=== PATIENT | female | born 1990 | race Caucasian/White ===

== ENCOUNTER 2019-09-14 10:33 | Inpatient (IN) | payer OTHER ==
[~2019-09-14] VITALS: Ht 157.5 cm; Wt 72.3 kg
[2019-09-24] VITALS (29 sets, daily range): BP systolic 11–125; BP diastolic 55–72; PULSE 75–97; TEMP 97.4–98.1
--- NOTE | 2019-09-24 07:18 | NUR ---
Presents to labor and delivery for induction of labor. heart rate monitor on. heart [id number] with accelerations noted, no decels noted. Iv start to left inner arm. Assessment done, questions offered and answered. 0768 Dr. Broussard here, arom done, moderate amount of clear fluid noted.
[2019-09-24] MEDS ORDERED: PRENATAL TABLET PO (07:44)
[2019-09-24] MEDS ORDERED: NATURAL IRON65 MG (07:56)
[2019-09-24] MEDS ORDERED: COLACE 100100 MG/CAP PO (07:57)
--- NOTE | 2019-09-24 08:00 | NUR ---
Pitocin 2 yobany units iv started as ordered and per protocol.
--- NOTE | 2019-09-24 08:30 | NUR ---
Request epidural. Anesthesia notified of request.
[2019-09-24 08:34] LABS: BASO % 0.3 % (0.0-2.0); EOS # 0.2 (0.0-0.7); EOS % 1.6 % (0-4.0); GRAN # 9.2 (1.4-6.5); HEMOGLOBIN 10.7 g/dl (12.5-16.0); LYMPH # 2.4 (1.2-3.4); LYMPH % 18.5 % (20.0-51.0); MEAN CELL VOLUME 96 fl (80.0-100.0); MEAN CORPUSCULAR HEMOGLOBIN 32 pg (27.0-31.0); MEAN CORPUSCULAR HGB CONC 34 g/dl (33.0-37.0); MEAN PLATELET VOLUME 10.5 fl (7.4-10.4); MONO # 0.9 (0.1-0.6); MONO % 6.8 % (1.7-9.3); PLATELET COUNT 201 K/mm3 (130-400); RED BLOOD COUNT 3.31 M/mm3 (4.10-5.30); REDCELL DISTRIBUTION WIDTH-CV 13.2 % (11.5-14.5)
[2019-09-24 08:35] LABS: HEMATOCRIT 31.9 % (37.0-47.0)
--- NOTE | 2019-09-24 09:00 | NUR ---
Anesthesia here, sits up for epidural. 0913 Catheter placed by anesthesia Carlos. 0914 Test dose given by Carlos mendez
--- NOTE | 2019-09-24 09:15 | NUR ---
Lies down after epidural. States feeling better. Spouse at bedside.
--- NOTE | 2019-09-24 11:15 | NUR ---
Rests in bed, alert. Denies any needs or discomfort at this time.
--- NOTE | 2019-09-24 11:30 | NUR ---
Request to have epidural turned down, says legs are to numb. Anesthesia notified.
--- NOTE | 2019-09-24 12:00 | NUR ---
Variable noted, vag exam done. Dilated to nine.
--- NOTE | 2019-09-24 12:35 | NUR ---
Vag exam done. Dilated to 10. States still pretty numb. Says does feel some pressure.
--- NOTE | 2019-09-24 12:45 | NUR ---
Dr. Broussard here. Prepped for delivery. 1248 Spontaneous delivery of baby girl by Dr. Broussard. 1252 Spontaneous delivery of placenta by Dr. Broussard. Pitocin started at 333ccs an hour as ordered and per protocol.
--- NOTE | 2019-09-24 13:00 | NUR ---
Rests in bed, alert. Holding baby lovingly. Spouse at bedside.
--- NOTE | 2019-09-24 13:30 | NUR ---
Rests in bed, alert. Holds baby, .
--- NOTE | 2019-09-24 14:45 | NUR ---
Rests in bed, alert. Holds baby lovingly. Denies any pain or discomfort at this time.
--- NOTE | 2019-09-24 15:30 | NUR ---
Ambulates to the bathroom. Voids moderate amount of clear yellow urine. Henny-care shown and done. New gown on. Ambulates to room 214 with this nurse and spouse. Tolerates well.
[2019-09-25 01:45] VITALS: BP 103/72; PULSE 67; TEMP 98.1
[2019-09-25 08:00] VITALS: BP 105/62; PULSE 78; TEMP 98.3
--- NOTE | 2019-09-25 09:46 | NUR ---
Initial visit; Parents thanked Boating Safety Officer for offering congratulations and God's blessings for the of their daughter. Boating Safety Officer thanked family for choosing [facility].
[2019-09-25 12:45] VITALS: BP 106/61; PULSE 84; TEMP 98
--- NOTE | 2019-09-25 14:21 | NUR ---
1415 DISCHARGE INSTRUCTIONS REVIEWED WITH PATIENT. PATIENT VERBALIZED UNDERSTANDING. PATIENT WILL NOTIFY THIS RN WHEN READY TO LEAVE.
--- NOTE | 2019-09-25 15:04 | NUR ---
1455 ALL PERSONAL BELONGINGS GATHERED FROM PATIENT ROOM. PATIENT LEFT AMBULATORY AND IN NO APPARENT DISTRESS. PATIENT ACCOMPANIED BY SPOUSE AND THIS RN.
== END 2019-09-25 14:55 | disposition home or self-care (01) | DRG 807 ==
LOC: OB 09-24 05:47 → LDR 09-24 07:11 → OB 09-24 10:32
PROVIDERS: ADMIT Obstetrics & Gynecology
PROC: 10E0XZZ Delivery of Products of Conception, External Approach (ICD-10-PCS; principal; 2019-09-24)
PROC: 3E033VJ Introduction of Other Hormone into Peripheral Vein, Percutaneous Approach (ICD-10-PCS; 2019-09-24)
DX: O48.0 Post-term pregnancy (principal); Z37.0 Single live birth; Z3A.40 40 weeks gestation of pregnancy; O69.81X0 Labor and delivery complicated by cord around neck, without compression, not applicable or unspecified; O99.02 Anemia complicating childbirth
CPT/HCPCS: J2590; J7120

== ENCOUNTER → 2019-09-18 | Outpatient (CLI) | payer SELFPAY | LOC: COL.LAB | DX: Z20.828 Contact with and (suspected) exposure to other viral communicable diseases (principal) ==